=== PATIENT | female | born 1980 | race Caucasian/White ===

== ENCOUNTER 2017-11-19 15:37 | Inpatient (IN) | payer SELFPAY ==
[~2017-11-19] VITALS: Ht 152.4 cm; Wt 41.3 kg
[2017-11-19] VITALS (8 sets, daily range): BP systolic 94–126; BP diastolic 51–72; PULSE 48–68; RESP 16–18; TEMP 96.7–97.7; O2SAT 97–99
[2017-11-19] MEDS ORDERED: ONDANSETRON HCL 4 MG/2 ML VIAL ONE (15:55)
--- NOTE | 2017-11-19 16:11 | PD ---
HPI Chief Complaint: Abdominal Pain Time Seen by Provider: 16:04 Travel History International Travel<30 days: No Contact w/Intl Traveler<30days: No Traveled to known affect area: No History of Present Illness HPI 36yo F with PMH of gallbladder stone and kidney stone here with right sided abdominal pain since yesterday. Pt said pain is constant and sharp. Associated with nausea and vomiting. Denies any fever, chest pain, sob, dysuria , hematuria, vaginal bleeding or discharge. No exacerbating or alleviating factors for pain. Denies any history of abdominal surgery. PFSH Past Medical History Anxiety: Yes Depression: Yes Cancer: No Cardiovascular Problems: Yes (GENETIC HEART DEFECT REPAIRED) Diabetes: No Diminished Hearing: No Endocrine: Yes Genitourinary: Yes Immune Disorder: No Musculoskeletal: No Neurologic: Yes Psychiatric: No Reproductive: No Respiratory: No Migraines: Yes Thyroid Disease: Yes Tetanus Vaccination: > 5 Years Influenza Vaccination: No ?: Not LMP: 11-05-17 Past Surgical History Body Medical Devices: artificial heart valve Cardiac Surgery: Yes (OPEN HEART AT AGE 7) Social History Alcohol Use: No Tobacco Use: Yes (1 PK) Substance Use: No Allergies-Medications (Allergen,Severity, Reaction): Coded Allergies: ibuprofen (Unverified Allergy, Intermediate, RASH, 11/19/17) codeine (Unverified Adverse Reaction, Intermediate, HYPERACTIVE, 11/19/17) Reported Meds & Prescriptions Reported Meds & Active Scripts Active No Active Prescriptions or Reported Medications Review of Systems Except as stated in HPI: all other systems reviewed are Neg Physical Exam Narrative GENERAL: 36yo F in moderate distress. SKIN: Focused skin assessment warm/dry. HEAD: Atraumatic. Normocephalic. EYES: Pupils equal and round. No scleral icterus. No injection or drainage. ENT: No nasal bleeding or discharge. Mucous membranes pink and moist. NECK: Trachea midline. No JVD. CARDIOVASCULAR: Regular rate and rhythm. No murmur appreciated. RESPIRATORY: No accessory muscle use. Clear to auscultation. Breath sounds equal bilaterally. GASTROINTESTINAL: Abdomen soft, +TTP Right midabdomen. There is ttp RUQ and RLQ. No rebound tenderness or guarding. MUSCULOSKELETAL: No obvious deformities. No clubbing. No cyanosis. No edema. NEUROLOGICAL: Awake and alert. No obvious cranial nerve deficits. Motor grossly within normal limits. Normal speech. PSYCHIATRIC: Appropriate mood and affect; insight and judgment normal. Data Data Last Documented VS Vital Signs Date Time Temp Pulse Resp B/P (MAP) Pulse Ox O2 Delivery O2 Flow Rate FiO2 11/19/17 19:10 62 16 116/71 (86) 98 Room Air 11/19/17 15:43 97.7 Orders Orders Ondansetron Inj (Zofran Inj) (11/19/17 15:55) Complete Blood Count With Diff (11/19/17 15:59) Comprehensive Metabolic Panel (11/19/17 15:59) Urinalysis - C+S If Indicated (11/19/17 15:59) Ed Urine Pregnancytest Poc (11/19/17 15:59) Iv Access Insert/Monitor (11/19/17 15:59) Oxygen Administration (11/19/17 15:59) Oximetry (11/19/17 15:59) Lipase (11/19/17 15:59) Ct Abd/Pel W Iv Contrast(Rout) (11/19/17 ) Ondansetron Inj (Zofran Inj) (11/19/17 16:15) Morphine Inj (Morphine Inj) (11/19/17 16:15) Urine Culture (11/19/17 16:00) Iohexol 350 Inj (Omnipaque 350 Inj) (11/19/17 17:17) Ondansetron Inj (Zofran Inj) (11/19/17 17:45) Ceftriaxone Inj (Rocephin Inj) (11/19/17 19:15) Ceftriaxone Inj (Rocephin Inj) (11/20/17 19:00) Consult Urology (11/19/17 ) Admit To Inpatient (11/19/17 ) Vital Signs (Adult) Q4H (11/19/17 19:23) Activity Oob Ad Vane (11/19/17 19:23) Intake + Output DANICA.QSHIFT (11/19/17 19:23) Diet Regular Basic (11/20/17 Breakfast) Sodium Chlor 0.9% 1000 Ml Inj (Ns 1000 M (11/19/17 19:23) Sodium Chloride 0.9% Flush (Ns Flush) (11/19/17 19:30) Sodium Chloride 0.9% Flush (Ns Flush) (11/19/17 21:00) Ondansetron Inj (Zofran Inj) (11/19/17 19:30) Comprehensive Metabolic Panel (11/20/17 06:00) Complete Blood Count With Diff (11/20/17 06:00) Case Management Consult (11/19/17 19:23) Scd Bilateral/Knee High DANICA.BID (11/19/17 19:23) Sukhjinder Bilateral/Knee High DANICA.QSHIFT (11/19/17 19:25) Acetaminophen (Tylenol) (11/19/17 19:30) Morphine Inj (Morphine Inj) (11/19/17 19:30) Docusate Sodium-Senna (Amelie-Colace) (11/19/17 21:00) Magnesium Hydroxide Liq (Milk Of Magnesi (11/19/17 19:30) Sennosides (Senokot) (11/19/17 19:30) Bisacodyl Supp (Dulcolax Supp) (11/19/17 19:30) Lactulose Liq (Lactulose Liq) (11/19/17 19:30) Inpatient Certification (11/19/17 ) Labs Laboratory Tests Test 11/19/17 16:00 White Blood Count 3.9 TH/MM3 Red Blood Count 3.85 MIL/MM3 Hemoglobin 12.1 GM/DL Hematocrit 36.3 % Mean Corpuscular Volume 94.3 FL Mean Corpuscular Hemoglobin 31.5 PG Mean Corpuscular Hemoglobin Concent 33.4 % Red Cell Distribution Width 12.5 % Platelet Count 45 TH/MM3 Mean Platelet Volume 8.9 FL Neutrophils (%) (Auto) 73.8 % Lymphocytes (%) (Auto) 16.1 % Monocytes (%) (Auto) 7.4 % Eosinophils (%) (Auto) 1.8 % Basophils (%) (Auto) 0.9 % Neutrophils # (Auto) 2.9 TH/MM3 Lymphocytes # (Auto) 0.6 TH/MM3 Monocytes # (Auto) 0.3 TH/MM3 Eosinophils # (Auto) 0.1 TH/MM3 Basophils # (Auto) 0.0 TH/MM3 CBC Comment AUTO DIFF Differential Comment AUTO DIFF CONFIRMED Platelet Estimate LOW Platelet Morphology Comment NORMAL Urine Collection Type CLEAN CATCH Urine Color YELLOW Urine Turbidity CLOUDY Urine pH 7.5 Urine Specific [place] 1.020 Urine Protein 30 mg/dL Urine Glucose (UA) NEG mg/dL Urine Ketones NEG mg/dL Urine Occult Blood LARGE Urine Nitrite NEG Urine Bilirubin NEG Urine Urobilinogen 1.0 MG/DL Urine Leukocyte Esterase NEG Urine RBC INNUM /hpf Urine WBC 3-5 /hpf Urine Squamous Epithelial Cells >8 /hpf Urine Bacteria MOD /hpf Urine Mucus MANY /lpf Microscopic Urinalysis Comment CULTURE INDICATED Blood Urea Nitrogen 15 MG/DL Creatinine 0.69 MG/DL Random Glucose 97 MG/DL Total Protein 7.7 GM/DL Albumin 3.6 GM/DL Calcium Level 8.9 MG/DL Alkaline Phosphatase 204 U/L Aspartate Amino Transf (AST/SGOT) 44 U/L Alanine Aminotransferase (ALT/SGPT) 41 U/L Total Bilirubin 1.2 MG/DL Sodium Level 139 MEQ/L Potassium Level 3.4 MEQ/L Chloride Level 110 MEQ/L Carbon Dioxide Level 19.6 MEQ/L Anion Gap 9 MEQ/L Estimat Glomerular Filtration Rate 96 ML/MIN Lipase 99 U/L MDM Medical Decision Making Medical Screen Exam Complete: Yes Emergency Medical Condition: Yes Differential Diagnosis Nephrolithiasis vs. appendicitis vs. cholecystitis Narrative Course 36yo F with right sided abdominal pain since yesterday. Labs reviewed, WBC is low at 3.9. Thrombocytopenic with platelet of 45,000 which has decreased from 111,000 in 2015. Mildly elevated bilirubin at 1.2. Elevated AST and alk phos which is at baseline. UA showed large blood. Moderate bacteria and culture is indicated. Pt given ceftriaxone 1gm IV. CT a/p showed cirrhotic appearing liver with evidence of portal hypertension and splenomegaly. 5mm stone at right UPJ with severe dilatation of the right collecting system. Pt given zofran and morphine and was still nauseous so given a second dose of zofran. Nausea and pain has been improved now. Since pt has an infected stone with severe dilatation of right collecting system, will admit. Discussed with Dr. Juarez who asked me call urology. I discussed with Dr. Griffiths and he is aware of the patient. Diagnosis Primary Impression: Obstructive uropathy Admitting Information Admitting Physician Requests: Admit Scripts No Active Prescriptions or Reported Meds Megha Ragland DO Nov 19, 2017 16:11
[2017-11-19] MEDS ORDERED: MORPHINE SULFATE 2 MG/ML SYRINGE IV PUSH ONE (16:15)
[2017-11-19] MEDS ORDERED: ONDANSETRON HCL 4 MG/2 ML VIAL IV PUSH ONE ×2 (16:15→17:45)
[2017-11-19 16:34] LABS: BILIRUBIN, URINE NEG (NEG); BLOOD, URINE LARGE (NEG); GLUCOSE,URINE NEG (NEG); KETONE, URINE NEG (NEG); NITRITE,URINE NEG (NEG); PH, URINE 7.5 (5.0-8.5); URINE COLOR YELLOW (YELLW/STRAW); URINE LEUKOCYTE ESTERASE NEG (NEG)
[2017-11-19 16:37] LABS: AUTOMATED NEUTROPHIL # 2.9 TH/MM3 (1.8-7.7); BASOPHIL % 0.9 % (0.0-2.0); EOSINOPHIL # 0.1 TH/MM3 (0-0.4); EOSINOPHIL % 1.8 % (0.0-4.0); HEMATOCRIT 36.3 % (35.0-46.0); HEMOGLOBIN 12.1 GM/DL (11.6-15.3); LYMPH % 16.1 % (9.0-44.0); LYMPHOCYTE # 0.6 TH/MM3 (1.0-4.8); MEAN CELL VOLUME 94.3 FL (80.0-100.0); MEAN CORPUSCULAR HEMOGLOBIN 31.5 PG (27.0-34.0); MEAN CORPUSCULAR HGB CONC 33.4 % (32.0-36.0); MEAN PLATELET VOLUME 8.9 FL (7.0-11.0); MONO % 7.4 % (0.0-8.0); MONOCYTE # 0.3 TH/MM3 (0-0.9); NEUT % 73.8 % (16.0-70.0); PLATELET COUNT 45 TH/MM3 (150-450); RED BLOOD COUNT 3.85 MIL/MM3 (4.00-5.30); RED CELL DISTRIBUTION WIDTH 12.5 % (11.6-17.2); WHITE BLOOD COUNT 3.9 TH/MM3 (4.0-11.0)
[2017-11-19 16:43] LABS: CHLORIDE 110 MEQ/L (98-107); SODIUM (NA) 139 MEQ/L (136-145)
[2017-11-19 16:47] LABS: ALBUMIN 3.6 GM/DL (3.4-5.0); BICARBONATE 19.6 MEQ/L (21.0-32.0); BLOOD UREA NITROGEN 15 MG/DL (7-18); CALCIUM 8.9 MG/DL (8.5-10.1); GLUCOSE,RANDOM 97 MG/DL (74-106)
[2017-11-19 16:50] LABS: ALT (GPT) 41 U/L (10-53); AST (GOT) 44 U/L (15-37); CREATININE 0.69 MG/DL (0.50-1.00); GLOMERULAR FILTRATION RATE 96 ML/MIN (>89); MUCUS URINE MANY /lpf (OCC)
[2017-11-19 16:51] LABS: BACTERIA, URINE MOD /hpf; RBC, URINE INNUM /hpf (0-3); SQUAMOUS EPITHELIAL CELL URINE >8 /hpf (0-5); TOTAL BILIRUBIN ADULT 1.2 MG/DL (0.2-1.0); TOTAL PROTEIN 7.7 GM/DL (6.4-8.2)
[2017-11-19 16:53] LABS: ALKALINE PHOSPHATASE 204 U/L (45-117)
[2017-11-19] MEDS ORDERED: IOHEXOL 350 MG/ML 10 ML VIAL (for RAD DIAG) IVCONTRAST ONE (17:17)
--- NOTE | 2017-11-19 17:49 | RADRPT ---
EXAM DATE/TIME: 11/19/2017 17:11 [facility] COMPARISON: CT ABDOMEN & PELVIS W CONTRAST, July 09, 2015, 13:53. INDICATIONS : Right sided abdominal pain. Evaluate for appendicitis. IV CONTRAST: 85 cc Omnipaque 350 (iohexol) IV ORAL CONTRAST: No oral contrast ingested. RADIATION DOSE: 4.46 CTDIvol (mGy) MEDICAL HISTORY : Cardiovascular disease. SURGICAL HISTORY : Open heart surgery. ENCOUNTER: Initial ACUITY: 2 days PAIN SCALE: 6/10 LOCATION: Right abdomen TECHNIQUE: Volumetric scanning of the abdomen and pelvis was performed. Using automated exposure control and ad justment of the mA and/or kV according to patient size, radiation dose was kept as low as reasonably achievable to obtain optimal diagnostic quality images. DICOM format image data is available electro nically for review and comparison. FINDINGS: LOWER LUNGS: The lung bases appear clear. The vessels in the left lower lobe appear large. The right heart appears enlarged. LIVER: The liver demonstrates diffuse decreased attenuation. There is hypertrophy of the left lobe and cauda te. There is a nodular liver surface. There is a recanalized paraumbilical vein, all consistent with cirrhosis and portal hypertension. No focal hepatic lesion is seen. SPLEEN: The spleen is enlarged measuring over 20 cm in length. PANCREAS: Within normal limits. KIDNEYS: There is a 5 mm stone at the right proximal ureter at the UPJ region. There is severe dilatation of t he right collecting system. There are 2 nonobstructing right renal stone seen in the right inferior c ollecting system measuring up to 7 mm. The left kidney is unremarkable. It is compressed by the splee n. ADRENAL GLANDS: Within normal limits. VASCULAR: There is no aortic aneurysm. BOWEL/MESENTERY: The stomach, small bowel, and colon demonstrate no acute abnormality. The appendix is normal. There is edema seen in the mesentery. ABDOMINAL WALL: Within normal limits. RETROPERITONEUM: There is no lymphadenopathy. There is edema in the retroperitoneum. BLADDER: No wall thickening or mass. REPRODUCTIVE: There is a 2.1 cm cyst at the left ovary. Similar-appearing cyst was seen on the prior CT examination . This could be secondary to a persistent cyst prominent follicle seen on both CT examinations. INGUINAL: There is some edema within the inguinal regions especially on the right. MUSCULOSKELETAL: Within normal limits for patient age. CONCLUSION: 1. Cirrhotic appearing liver with evidence of portal hypertension and splenomegaly. 2. 5 mm stone at the right UPJ with severe dilatation of the right collecting system. Significant del ayed enhancement of the right kidney is not seen. 3. Edema seen in the mesentery and retroperitoneum and inguinal regions likely from the cirrhosis. 4. Enlargement of the right heart and prominent vessels in the left lower lobe. Jonah Veras MD on November 19, 2017 at 17:25 Board Certified Radiologist. This report was verified electronically.
[2017-11-19] MEDS ORDERED: cefTRIAXone INJ 1,000 MG in SODIUM CHLORIDE 0.9% INJ 100 ML IV ONE (19:15)
[2017-11-19] MEDS ORDERED: SENNOSIDES 8.6 MG TAB PO PRN (19:30)
[2017-11-19] MEDS ORDERED: MORPHINE SULFATE 2 MG/ML SYRINGE IV PUSH PRN (19:30)
[2017-11-19] MEDS ORDERED: LACTULOSE SYRUP 20 GM/30 ML CUP PO PRN (19:30)
[2017-11-19] MEDS ORDERED: MAGNESIUM HYDROXIDE SUSP 30 ML CUP PO PRN (19:30)
[2017-11-19] MEDS ORDERED: ACETAMINOPHEN 325 MG TAB PO PRN (19:30)
[2017-11-19] MEDS ORDERED: BISACODYL 10 MG SUPP RECTAL PRN (19:30)
[2017-11-19] MEDS ORDERED: ONDANSETRON HCL 4 MG/2 ML VIAL IVP PRN (19:30)
[2017-11-19] MEDS ORDERED: SODIUM CHLORIDE 0.9% FLUSH 10 ML FLUSH IV FLUSH PRN (19:30)
[2017-11-19] MEDS: SODIUM CHLOR 0.9% 1000 ML INJ 1,000 ML IV SCH (20:09)
[2017-11-19] MEDS: SODIUM CHLORIDE 0.9% FLUSH 10 ML FLUSH IV FLUSH SCH (21:00)
[2017-11-19] MEDS: DOCUSATE SODIUM 50 MG/SENNA 8.6 MG TAB PO SCH (21:00)
--- NOTE | 2017-11-19 21:47 | PD.CONS ---
HPI Service Urology Consult Requested By Reason for Consult Nephrolithiasis Primary Care Physician No Primary Care Physician Diagnosis: History of Present Illness 36yo female with history of nephrolithiasis seen in consultation for right obstructing proximal ureteral stone. She reports significant right flank pain with N/V last night that progressed. She has had stones in the past which typically pass on their own without surgical intervention. No fevers. Denies any hematuria. CT scan identified a 5mm right proximal ureteral stone resulting in right sided hydronephrosis. Review of Systems ROS Limitations: Clinical Condition Constitutional: DENIES: Fever Eyes: DENIES: Blurred vision Ears, nose, mouth, throat: DENIES: Hearing loss Respiratory: DENIES: Cough Cardiovascular: DENIES: Chest pain Gastrointestinal: COMPLAINS OF: Abdominal pain, Nausea, Vomiting Genitourinary: DENIES: Urinary frequency, Hematuria Musculoskeletal: COMPLAINS OF: Back pain Neurologic: DENIES: Headache Psychiatric: DENIES: Anxiety Except as stated in HPI: all other systems reviewed are Neg Past Family Social History Past Medical History Nephrolithiasis Past Surgical History No past surgical history Reported Medications Reported Meds & Active Scripts Active No Active Prescriptions or Reported Medications Allergies: Coded Allergies: ibuprofen (Unverified Allergy, Intermediate, RASH, 11/19/17) codeine (Unverified Adverse Reaction, Intermediate, HYPERACTIVE, 11/19/17) Active Ordered Medications Current Medications Medications (Trade) Dose Ordered Sig/Ranjeet Route Start Time Stop Time Status Last Admin Ceftriaxone Sodium 1000 mg/ Sodium Chloride 100 ml @ 200 mls/hr Q24H IV 11/20/17 19:00 Sodium Chloride 1,000 ml @ 100 mls/hr Q10H IV 11/19/17 19:23 11/19/17 20:09 (NS Flush) 2 ml UNSCH PRN IV FLUSH 11/19/17 19:30 (NS Flush) 2 ml BID IV FLUSH 11/19/17 21:00 (Zofran Inj) 4 mg Q6H PRN IVP 11/19/17 19:30 (Tylenol) 650 mg Q6H PRN PO 11/19/17 19:30 (Morphine Inj) 2 mg Q3H PRN IV PUSH 11/19/17 19:30 (Amelie-Colace) 1 tab BID PO 11/19/17 21:00 (Milk Of Magnesia Liq) 30 ml Q12H PRN PO 11/19/17 19:30 (Senokot) 17.2 mg Q12H PRN PO 11/19/17 19:30 (Dulcolax Supp) 10 mg DAILY PRN RECTAL 11/19/17 19:30 (Lactulose Liq) 30 ml DAILY PRN PO 11/19/17 19:30 Family History Family history pertinent for kidney stones in father Social History 1 ppd Smoking history Physical Exam Vital Signs Date Time Temp Pulse Resp B/P (MAP) Pulse Ox O2 Delivery O2 Flow Rate FiO2 11/19/17 21:10 96.7 57 17 94/63 (73) 99 11/19/17 19:10 62 16 116/71 (86) 98 Room Air 11/19/17 18:39 68 18 109/51 (70) 98 Room Air 11/19/17 17:42 55 16 122/63 (82) 97 Room Air 11/19/17 17:06 48 18 117/66 (83) 99 Room Air 11/19/17 15:46 99 Room Air 11/19/17 15:46 99 Room Air 11/19/17 15:43 97.7 52 18 126/72 (90) 99 Physical Exam GENERAL: This is a well-nourished, well-developed patient, in no apparent distress. SKIN: No rashes, ecchymoses or lesions. Cool and dry. HEAD: Atraumatic. Normocephalic. EYES: Extraocular motions intact. No scleral icterus. No injection or drainage. ENT: Nose without bleeding, purulent drainage. Airway patent. NECK: Trachea midline. No JVD or lymphadenopathy. CARDIOVASCULAR: normal pulse RESPIRATORY: nonlabored GASTROINTESTINAL: Abdomen soft, non-tender, nondistended. MUSCULOSKELETAL: Extremities without clubbing, cyanosis, or edema. . NEUROLOGICAL: Awake and alert. Motor and sensory grossly within normal limits. Normal speech. Lab results reviewed: Yes Laboratory Tests Test 11/19/17 16:00 White Blood Count 3.9 Red Blood Count 3.85 Hemoglobin 12.1 Hematocrit 36.3 Mean Corpuscular Volume 94.3 Mean Corpuscular Hemoglobin 31.5 Mean Corpuscular Hemoglobin Concent 33.4 Red Cell Distribution Width 12.5 Platelet Count 45 Mean Platelet Volume 8.9 Neutrophils (%) (Auto) 73.8 Lymphocytes (%) (Auto) 16.1 Monocytes (%) (Auto) 7.4 Eosinophils (%) (Auto) 1.8 Basophils (%) (Auto) 0.9 Neutrophils # (Auto) 2.9 Lymphocytes # (Auto) 0.6 Monocytes # (Auto) 0.3 Eosinophils # (Auto) 0.1 Basophils # (Auto) 0.0 CBC Comment AUTO DIFF Differential Comment AUTO DIFF CONFIRMED Platelet Estimate LOW Platelet Morphology Comment NORMAL Urine Collection Type CLEAN CATCH Urine Color YELLOW Urine Turbidity CLOUDY Urine pH 7.5 Urine Specific [place] 1.020 Urine Protein 30 Urine Glucose (UA) NEG Urine Ketones NEG Urine Occult Blood LARGE Urine Nitrite NEG Urine Bilirubin NEG Urine Urobilinogen 1.0 Urine Leukocyte Esterase NEG Urine RBC INNUM Urine WBC 3-5 Urine Squamous Epithelial Cells >8 Urine Bacteria MOD Urine Mucus MANY Microscopic Urinalysis Comment CULTURE INDICATED Blood Urea Nitrogen 15 Creatinine 0.69 Random Glucose 97 Total Protein 7.7 Albumin 3.6 Calcium Level 8.9 Alkaline Phosphatase 204 Aspartate Amino Transf (AST/SGOT) 44 Alanine Aminotransferase (ALT/SGPT) 41 Total Bilirubin 1.2 Sodium Level 139 Potassium Level 3.4 Chloride Level 110 Carbon Dioxide Level 19.6 Anion Gap 9 Estimat Glomerular Filtration Rate 96 Lipase 99 Date/Time Source Procedure Growth Status 11/19/17 16:00 Urine Clean Catch Urine Culture Pending Received Result Diagram: 11/19/17 1600 11/19/17 1600 Personally reviewed images: Yes Imaging Last Impressions Abdomen/Pelvis CT 11/19/17 0000 Signed Impressions: Service Date/Time: Sunday, November 19, 2017 17:11 - CONCLUSION: 1. Cirrhotic appearing liver with evidence of portal hypertension and splenomegaly. 2. 5 mm stone at the right UPJ with severe dilatation of the right collecting system. Significant delayed enhancement of the right kidney is not seen. 3. Edema seen in the mesentery and retroperitoneum and inguinal regions likely from the cirrhosis. 4. Enlargement of the right heart and prominent vessels in the left lower lobe. Jonah Veras MD Assessment and Plan Problem List: (1) Abdominal pain ICD Code: R10.9 - Unspecified abdominal pain Status: Acute (2) Obstructive uropathy ICD Code: N13.9 - Obstructive and reflux uropathy, unspecified Status: Acute Assessment and Plan -CT images reviewed with 5mm right proximal ureteral stone noted with right hydronephrosis -At this time, the patient is comfortable, no fevers, no pain, tolerating diet -As patient is currently doing well, no emergent stent placement indicated at this time -We did discuss ureteral stent placement vs nephrostomy tube for her right renal stone -If her pain is controlled without fevers and normal renal function, she may be followed as an outpatient for intervention -If she develops fevers or worsening pain, would strongly consider right nephrostomy tube over ureteral stent given the hydronephrosis -Discussed with patient in detail who understands and agrees with above plan -NPO midnight -Will follow. Ted Griffiths MD Nov 19, 2017 21:47
[2017-11-20] MEDS: SODIUM CHLOR 0.9% 1000 ML INJ 1,000 ML IV SCH (05:23)
[2017-11-20 06:14] LABS: AUTOMATED NEUTROPHIL # 2.5 TH/MM3 (1.8-7.7); BASOPHIL % 0.7 % (0.0-2.0); EOSINOPHIL # 0.1 TH/MM3 (0-0.4); EOSINOPHIL % 2.4 % (0.0-4.0); HEMATOCRIT 31.9 % (35.0-46.0); LYMPH % 20.8 % (9.0-44.0); LYMPHOCYTE # 0.8 TH/MM3 (1.0-4.8); MEAN CELL VOLUME 94.2 FL (80.0-100.0); MEAN CORPUSCULAR HEMOGLOBIN 32.3 PG (27.0-34.0); MEAN CORPUSCULAR HGB CONC 34.3 % (32.0-36.0); MONO % 7.1 % (0.0-8.0); MONOCYTE # 0.3 TH/MM3 (0-0.9); PLATELET COUNT 94 TH/MM3 (150-450); RED BLOOD COUNT 3.39 MIL/MM3 (4.00-5.30); RED CELL DISTRIBUTION WIDTH 13.3 % (11.6-17.2); WHITE BLOOD COUNT 3.7 TH/MM3 (4.0-11.0)
[2017-11-20 06:23] LABS: CHLORIDE 113 MEQ/L (98-107); SODIUM (NA) 141 MEQ/L (136-145)
[2017-11-20 06:56] LABS: ALBUMIN 2.8 GM/DL (3.4-5.0); ALKALINE PHOSPHATASE 166 U/L (45-117); ALT (GPT) 31 U/L (10-53); AST (GOT) 32 U/L (15-37); BICARBONATE 20.6 MEQ/L (21.0-32.0); BLOOD UREA NITROGEN 13 MG/DL (7-18); CALCIUM 7.8 MG/DL (8.5-10.1); CREATININE 0.62 MG/DL (0.50-1.00); GLOMERULAR FILTRATION RATE 108 ML/MIN (>89); GLUCOSE,RANDOM 86 MG/DL (74-106); TOTAL BILIRUBIN ADULT 0.7 MG/DL (0.2-1.0); TOTAL PROTEIN 6.4 GM/DL (6.4-8.2)
[2017-11-20 08:00] VITALS: BP 102/57; PULSE 67; RESP 12; TEMP 96.3; O2SAT 97
--- NOTE | 2017-11-20 08:00 | HHI.HP ---
[facility] Service [facility] Primary Care Physician No Primary Care Physician Admission Diagnosis Obstructive uropathy Diagnoses: Chief Complaint: right flank pain with dark colored urine Travel History International Travel<30 Days: No Contact w/Intl Traveler <30 Da: No Traveled to Known Affected Are: No History of Present Illness Patient is a 36 years old female who prsented to ER complaining of right flank pain - yesterday noted dark "orange colored" urine associated with right flank pain with some nausea with pain and during urination all day through out but last night so severe which prompted patient to come here Evaluated at ER showing right ureteral stone- was promptly seen by Urolgy and admitted. Started on IVF patient denies any fever. this am- feeling better- no complains of pain at all, states urine light yellow colored, voiding spontaneously with no pain, no nausea Patient with hsitory of congenital heart disease- s/p repair- sounds lke valvular repair "hole in the heart" history of Liver cirrhosis - states "congenital" OB gyne history- . LMP first week of November Review of Systems Constitutional: DENIES: Diaphoretic episodes, Fatigue, Fever, Weight gain, Weight loss, Chills, Dizziness, Change in appetite, Night Sweats Endocrine: DENIES: Abnorml menstrual pattern, Heat/cold intolerance, Polydipsia , Polyuria, Polyphagia Eyes: DENIES: Blurred vision, Diplopia, Eye inflammation, Eye pain, Vision loss , Photosensitivity, Double Vision Ears, nose, mouth, throat: DENIES: Tinnitus, Hearing loss, Vertigo, Nasal discharge, Oral lesions, Throat pain, Hoarseness, Ear Pain, Running Nose, Epistaxis, Sinus Pain, Toothache, Odynophagia Respiratory: DENIES: Apneas, Cough, Snoring, Wheezing, Hemoptysis, Sputum production, Shortness of breath Cardiovascular: DENIES: Chest pain, Palpitations, Syncope, Dyspnea on Exertion , PND, Lower Extremity Edema, Orthopnea, Claudication Gastrointestinal: DENIES: Abdominal pain, Black stools, Bloody stools, Constipation, Diarrhea, Nausea, Vomiting, Difficulty Swallowing, Anorexia Genitourinary: DENIES: Abnormal vaginal bleeding, Dysmenorrhea, Dyspareunia, Sexual dysfunction, Urinary frequency, Urinary incontinence, Urgency, Hematuria , Dysuria, Nocturia, Vaginal discharge Musculoskeletal: COMPLAINS OF: Back pain (chronic), DENIES: Joint pain, Muscle aches, Stiffness, Joint Swelling, Neck pain Integumentary: DENIES: Abnormal pigmentation, Pruritus, Rash, Nail changes, Breast masses, Breast skin changes, Nipple discharge Hematologic/lymphatic: DENIES: Bruising, Lymphadenopathy Immunologic/allergic: DENIES: Eczema, Urticaria Neurologic: DENIES: Abnormal gait, Headache, Localized weakness, Paresthesias, Seizures, Speech Problems, Tremor, Poor Balance Psychiatric: DENIES: Anxiety, Confusion, Mood changes, Depression, Hallucinations, Agitation, Suicidal Ideation, Homicidal Ideation, Delusions Past Family Social History Past Medical History congenital heart/valuvlar disease s/p repair Cirrhosis liver- per patient congenital - no history of alcohol use, review old labs- hepatitis serology negative history of widon tooth extraction Past Surgical History heart surgery wisdom tooth extraction Reported Medications tylenol prn for migraine Allergies: Coded Allergies: ibuprofen (Unverified Allergy, Intermediate, RASH, 11/19/17) codeine (Unverified Adverse Reaction, Intermediate, HYPERACTIVE, 11/19/17) Family History non contributory Social History 1/2- 1 pack per day denies alcohol or substance abuse Physical Exam Vital Signs Vital Signs Date Time Temp Pulse Resp B/P (MAP) Pulse Ox O2 Delivery O2 Flow Rate FiO2 11/19/17 23:59 97.6 56 18 97/56 (70) 97 11/19/17 21:10 96.7 57 17 94/63 (73) 99 11/19/17 19:10 62 16 116/71 (86) 98 Room Air 11/19/17 18:39 68 18 109/51 (70) 98 Room Air 11/19/17 17:42 55 16 122/63 (82) 97 Room Air 11/19/17 17:06 48 18 117/66 (83) 99 Room Air 11/19/17 15:46 99 Room Air 11/19/17 15:46 99 Room Air 11/19/17 15:43 97.7 52 18 126/72 (90) 99 Physical Exam GENERAL: in no apparent distress. SKIN: No rashes, ecchymoses or lesions. Cool and dry. HEAD: Atraumatic. Normocephalic. No temporal or scalp tenderness. EYES: Pupils equal round and reactive. Extraocular motions intact. slight icteresia. ENT: Nose without bleeding, . Throat without erythema, tonsillar hypertrophy or exudate. Uvula midline. Airway patent. NECK: Trachea midline. No JVD or lymphadenopathy. Supple, nontender, no meningeal signs. CARDIOVASCULAR: Regular rate and rhythm, no murmur appreciated, no rub RESPIRATORY: Clear to auscultation. Breath sounds equal bilaterally. No wheezes , rales, or rhonchi. GASTROINTESTINAL: Abdomen soft, No guarding. no CVA tenderness MUSCULOSKELETAL: Extremities without clubbing, cyanosis, or edema. No joint tenderness, effusion, or edema noted. No calf tenderness. Negative Homans sign bilaterally. NEUROLOGICAL: Awake and alert. Cranial nerves II through XII intact. Motor and sensory grossly within normal limits. Five out of 5 muscle strength in all muscle groups. Normal speech. Laboratory Laboratory Tests Test 11/19/17 16:00 11/20/17 05:50 White Blood Count 3.9 3.7 Red Blood Count 3.85 3.39 Hemoglobin 12.1 11.0 Hematocrit 36.3 31.9 Mean Corpuscular Volume 94.3 94.2 Mean Corpuscular Hemoglobin 31.5 32.3 Mean Corpuscular Hemoglobin Concent 33.4 34.3 Red Cell Distribution Width 12.5 13.3 Platelet Count 45 94 Mean Platelet Volume 8.9 8.0 Neutrophils (%) (Auto) 73.8 69.0 Lymphocytes (%) (Auto) 16.1 20.8 Monocytes (%) (Auto) 7.4 7.1 Eosinophils (%) (Auto) 1.8 2.4 Basophils (%) (Auto) 0.9 0.7 Neutrophils # (Auto) 2.9 2.5 Lymphocytes # (Auto) 0.6 0.8 Monocytes # (Auto) 0.3 0.3 Eosinophils # (Auto) 0.1 0.1 Basophils # (Auto) 0.0 0.0 CBC Comment AUTO DIFF AUTO DIFF Differential Comment AUTO DIFF CONFIRMED Platelet Estimate LOW Platelet Morphology Comment NORMAL Urine Collection Type CLEAN CATCH Urine Color YELLOW Urine Turbidity CLOUDY Urine pH 7.5 Urine Specific [place] 1.020 Urine Protein 30 Urine Glucose (UA) NEG Urine Ketones NEG Urine Occult Blood LARGE Urine Nitrite NEG Urine Bilirubin NEG Urine Urobilinogen 1.0 Urine Leukocyte Esterase NEG Urine RBC INNUM Urine WBC 3-5 Urine Squamous Epithelial Cells >8 Urine Bacteria MOD Urine Mucus MANY Microscopic Urinalysis Comment CULTURE INDICATED Blood Urea Nitrogen 15 13 Creatinine 0.69 0.62 Random Glucose 97 86 Total Protein 7.7 6.4 Albumin 3.6 2.8 Calcium Level 8.9 7.8 Alkaline Phosphatase 204 166 Aspartate Amino Transf (AST/SGOT) 44 32 Alanine Aminotransferase (ALT/SGPT) 41 31 Total Bilirubin 1.2 0.7 Sodium Level 139 141 Potassium Level 3.4 3.8 Chloride Level 110 113 Carbon Dioxide Level 19.6 20.6 Anion Gap 9 7 Estimat Glomerular Filtration Rate 96 108 Lipase 99 Date/Time Source Procedure Growth Status 11/19/17 16:00 Urine Clean Catch Urine Culture Pending Received Result Diagram: 11/20/17 0550 11/20/17 0550 Imaging Last Impressions Abdomen/Pelvis CT 11/19/17 0000 Signed Impressions: Service Date/Time: Sunday, November 19, 2017 17:11 - CONCLUSION: 1. Cirrhotic appearing liver with evidence of portal hypertension and splenomegaly. 2. 5 mm stone at the right UPJ with severe dilatation of the right collecting system. Significant delayed enhancement of the right kidney is not seen. 3. Edema seen in the mesentery and retroperitoneum and inguinal regions likely from the cirrhosis. 4. Enlargement of the right heart and prominent vessels in the left lower lobe. Jonah Veras MD Capadebayoi VTE Risk Assessment Caprini Risk Assessment Model Point Value = 1 Point Value = 2 Point Value = 3 Point Value = 5 Age 41-60 Minor surgery BMI > 25 kg/m2 Swollen legs Varicose veins or History of unexplained or recurrent spontaneous Oral contraceptives or hormone replacement Sepsis (< 1 month) Serious lung disease, including pneumonia (< 1 month) Abnormal pulmonary function Acute myocardial infarction Congestive heart failure (< 1 month) History of inflammatory bowel disease Medical patient at bed rest Age 61-74 Arthroscopic surgery Major open surgery (> 45 min) Laparoscopic surgery (> 45 min) Malignancy Confined to bed (> 72 hours) Immobilizing plaster cast Central venous access Age >= 75 History of VTE Family history of VTE Factor V Leiden Prothrombin [id number] Lupus anticoagulant Anticardiolipin antibodies Elevated serum homocysteine Heparin-induced thrombocytopenia Other congenital or acquired thrombophilia Stroke (< 1 month) Elective arthroplasty Hip, pelvis, or leg fracture Acute spinal cord injury (< 1 month) Prophylaxis Regimen Total Risk Factor Score Risk Level Prophylaxis Regimen 0-1 Low Early ambulation 2 Moderate Order ONE of the following: *Sequential Compression Device (SCD) *Heparin 5000 units SQ BID 3-4 Higher Order ONE of the following medications: *Heparin 5000 units SQ TID *Enoxaparin/Lovenox 40 mg SQ daily (WT < 150 kg, CrCl > 30 mL/min) *Enoxaparin/Lovenox 30 mg SQ daily (WT < 150 kg, CrCl > 10-29 mL/min) *Enoxaparin/Lovenox 30 mg SQ BID (WT < 150 kg, CrCl > 30 mL/min) AND/OR *Sequential Compression Device (SCD) 5 or more Highest Order ONE of the following medications: *Heparin 5000 units SQ TID (Preferred with Epidurals) *Enoxaparin/Lovenox 40 mg SQ daily (WT < 150 kg, CrCl > 30 mL/min) *Enoxaparin/Lovenox 30 mg SQ daily (WT < 150 kg, CrCl > 10-29 mL/min) *Enoxaparin/Lovenox 30 mg SQ BID (WT < 150 kg, CrCl > 30 mL/min) AND *Sequential Compression Device (SCD) Assessment and Plan Assessment and Plan 36 years old female Obstructive uropathy- with proximal right ureteral stone - IVF. - pain controlled - no pain at all - Urology ff- Hypokalemia- corrected History of liver cirrhosis - etio? 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 "I am cutting down and will stop" UP and ambulating CM - consult- needs OP set up with a PCP- please assist DC today if no plans for procedure- OP ff up with urology Physician Certification 2 Midnight Certification Type: Admission for Inpatient Services Order for Inpatient Services The services are ordered in accordance with Medicare regulations or non- Medicare payer requirements, as applicable. In the case of services not specified as inpatient-only, they are appropriately provided as inpatient services in accordance with the 2-midnight benchmark. Estimated LOS (days): 3 days is the estimated time the patient will need to remain in the hospital, assuming treatment plan goals are met and no additional complications. Post-Hospital Plan: Moreno Valdes MD Nov 20, 2017 08:00
[2017-11-20] MEDS: SODIUM CHLORIDE 0.9% FLUSH 10 ML FLUSH IV FLUSH SCH (08:33)
[2017-11-20] MEDS: DOCUSATE SODIUM 50 MG/SENNA 8.6 MG TAB PO SCH (08:40)
[2017-11-20] MEDS ORDERED: CIPR500T2 PO (11:25)
[2017-11-20 12:00] VITALS: BP 104/59; PULSE 50; RESP 16; TEMP 96.3; O2SAT 97
[2017-11-20] MEDS ORDERED: cefTRIAXone INJ 1,000 MG in SODIUM CHLORIDE 0.9% INJ 100 ML IV SCH (19:00)
== END 2017-11-20 13:17 | disposition home or self-care (01) | DRG 694 ==
LOC: PHED 15:37 → PHEDA 19:36 → PH3A 20:59
PROVIDERS: ADMIT Internal Medicine; ATTEND Internal Medicine
DX: N13.2 Hydronephrosis with renal and ureteral calculous obstruction (principal); K76.6 Portal hypertension; D69.59 Other secondary thrombocytopenia; K74.60 Unspecified cirrhosis of liver; E87.6 Hypokalemia; Z87.74 Personal history of (corrected) congenital malformations of heart and circulatory system; F17.210 Nicotine dependence, cigarettes, uncomplicated; Z87.442 Personal history of urinary calculi
CPT/HCPCS: 74177; 80053; 81001; 83690; 84703; 85025; 87086; 96374; 96375; 96376; J0696; J2270; J2405; J7030; Q9967